=== PATIENT | male | born 1975 | race Caucasian/White ===

== ENCOUNTER 2019-10-13 06:51 | Emergency (ER) | payer BC, OTHER ==
[~2019-10-13] VITALS: Ht 188 cm; Wt 90.4 kg
[2019-10-13] MEDS ORDERED: IBUP200C33 PO (07:04)
[2019-10-13] MEDS ORDERED: ACET-683 PO (07:04)
[2019-10-13] MEDS ORDERED: TRAM50TA2 PO (07:04)
[2019-10-13] MEDS ORDERED: METH1TAB40 PO (07:04)
[2019-10-13] MEDS ORDERED: FLOM0.4C39 PO (07:04)
[2019-10-13] MEDS ORDERED: VALA500T5 PO (07:04)
[2019-10-13] MEDS ORDERED: MELO15TA28 PO (07:04)
[2019-10-13] MEDS ORDERED: KETO10TAB PO ×2 (07:04→08:58)
[2019-10-13] MEDS ORDERED: KETOROLAC 30 MG/ML 1ML VIAL IV ONE (07:30)
[2019-10-13] MEDS ORDERED: NS 1,000 ML IV ONE (07:30)
--- NOTE | 2019-10-13 07:46 | REPVR ---
PROCEDURE INFORMATION: Exam: CT Abdomen And Pelvis Without Contrast Exam date and time: 10/13/2019 7:18 AM Age: 44 years old Clinical indication: Pain; Other: Flank; Additional info: Left flank pain, HX of 2mm stone on that side TECHNIQUE: Imaging protocol: Computed tomography of the abdomen and pelvis without contrast. Radiation optimization: All CT scans at this facility use at least one of these dose optimization techniques: automated exposure control; mA and/or kV adjustment per patient size (includes targeted exams where dose is matched to clinical indication); or iterative reconstruction. COMPARISON: No relevant prior studies available. FINDINGS: Limitations: Evaluation is somewhat limited by lack of IV contrast. Lungs: The visualized lung bases are essentially clear. Liver: The liver demonstrates some geographic fatty density. It appears otherwise grossly unremarkable. Gallbladder and bile ducts: No gallstones are evident, but ultrasound would be more sensitive. No gross biliary ductal dilatation. Pancreas: Grossly unremarkable. Spleen: Grossly unremarkable. Adrenals: Grossly unremarkable. Kidneys and ureters: The left kidney contains 2 punctate nonobstructing stones. There is no hydronephrosis or ureteral calculus on either side, and the kidneys appear otherwise grossly unremarkable. Stomach and bowel: The unopacified small bowel is not significantly distended to suggest obstruction. Question mild wall thickening versus underdistention of portions of the proximal transverse and descending colon. The large bowel is otherwise grossly unremarkable in appearance. Appendix: The appendix appears normal. Intraperitoneal space: No free air or significant free fluid. Vasculature: The abdominal aorta is nonaneurysmal. Atherosclerotic vascular calcifications are noted. Lymph nodes: No gross pathologic lymphadenopathy. Bladder: Grossly unremarkable. Reproductive: The prostate is large, measuring 5.1 x 4.3 cm, and contains coarse calcifications. Bones/joints: Degenerative changes involve the spine and hips. Soft tissues: Unremarkable. IMPRESSION: 1. Punctate nonobstructing left nephrolithiasis without hydronephrosis or ureteral calculus. 2. Question mild wall thickening versus underdistention of portions of the proximal transverse and descending colon. Correlate as to any possible non-specific colitis. 3. Large prostate containing coarse calcifications. COMMENTS: Depending on suspected etiology of symptoms, consider a targeted ultrasound or contrast enhanced exam. Electronically signed by: Scooter Johnson On 10/13/2019 07:45:44 AM
[2019-10-13 08:08] LABS: BASO % 0.6 % (0.0-1.0); EOS # 0.2 10^3/uL (0.0-0.5); EOS % 3.7 % (0.0-3.0); HEMOGLOBIN 15.2 g/dl (13.5-17.5); LYMPH # 1.6 10^3/uL (1.5-5.0); LYMPH % 32.2 % (24.0-44.0); MEAN CORPUSCULAR HEMOGLOBIN 29.7 pg (27.0-33.0); MEAN CORPUSCULAR HGB CONC 33.8 g/dl (32.0-36.5); MEAN CORPUSCULAR VOLUME 87.9 fl (80.0-96.0); MONO # 0.5 10^3/uL (0.0-0.8); MONO % 9.2 % (0.0-5.0); NEUTROPHILS # 2.7 10^3/uL (1.5-8.5); NEUTROPHILS % 53.5 % (36.0-66.0); PLATELET COUNT, AUTOMATED 191 10^3/uL (150-450); RED BLOOD COUNT 5.12 10^6/uL (4.30-6.10); WHITE BLOOD COUNT 5.1 10^3/uL (4.0-10.0)
[2019-10-13 08:33] LABS: BLOOD UREA NITROGEN 21 MG/DL (7-18); CALCIUM LEVEL 8.6 MG/DL (8.5-10.1); CARBON DIOXIDE LEVEL 28 MEQ/L (21-32); CHLORIDE LEVEL 106 MEQ/L (98-107); CREATININE FOR GFR 0.98 MG/DL (0.70-1.30); GLOMERULAR FILTRATION RATE > 60.0 (>60); GLUCOSE, FASTING 104 MG/DL (70-100); POTASSIUM SERUM 3.7 MEQ/L (3.5-5.1); SODIUM LEVEL 140 MEQ/L (136-145)
[2019-10-13 08:35] LABS: BILIRUBIN,DIRECT 0.1 MG/DL (0.0-0.2); BILIRUBIN,TOTAL 0.3 MG/DL (0.2-1.0); TOTAL PROTEIN 7.3 GM/DL (6.4-8.2)
[2019-10-13 08:45] VITALS: BP 125/83
[2019-10-13] MEDS ORDERED: TAMSULOSIN 0.4 MG CAP PO ONE (09:00)
== END 2019-10-13 09:07 | disposition home or self-care (01) ==
LOC: M ED 06:51
DX: N20.0 Calculus of kidney (principal); N40.0 Benign prostatic hyperplasia without lower urinary tract symptoms; Z87.442 Personal history of urinary calculi; Z79.899 Other long term (current) drug therapy
CPT/HCPCS: 36415; 74176; 80048; 80076; 81001; 83690; 85025; 96374; 99284; J1885